=== PATIENT | male | born 1980 | race Caucasian/White ===

== ENCOUNTER 2020-04-19 18:57 | Emergency (ER) | payer MEDICAID ==
[~2020-04-19] VITALS: Ht 182.9 cm; Wt 104.5 kg
[2020-04-19 19:02] VITALS: BP 170/110
[2020-04-19] MEDS ORDERED: MUPI22OI30 TOP (20:01)
== END 2020-04-19 20:12 | disposition home or self-care (01) ==
LOC: ER 18:59
DX: T81.49XA Infection following a procedure, other surgical site, initial encounter (principal); L02.511 Cutaneous abscess of right hand; L02.416 Cutaneous abscess of left lower limb; F17.200 Nicotine dependence, unspecified, uncomplicated; F15.90 Other stimulant use, unspecified, uncomplicated; Z59.0 Homelessness; Z88.8 Allergy status to other drugs, medicaments and biological substances; Z79.2 Long term (current) use of antibiotics
CPT/HCPCS: 99283